=== PATIENT | female | born 1945 | race Native Hawaiian/Other Pacific Islander ===

== ENCOUNTER 2017-10-22 08:33 | Day surgery (SDC) | payer MEDICARE | END 2017-10-22 09:43 | disposition home or self-care (01) | LOC: C.PAT 08:33 → C.CATHLAB 08:33 → EDSTATUS 09:30 → C.CATHLAB 09:43 | PROVIDERS: ATTEND Internal Medicine | DX: R42 Dizziness and giddiness (principal) ==

== ENCOUNTER 2017-12-05 13:02 | Emergency (ER) | payer MEDICARE ==
[2017-12-05 13:25] VITALS: BMI 22.3
[2017-12-05 13:29] VITALS: BP 120/80; PULSE 85; RESP 18; TEMP 98.4; O2SAT 98
--- NOTE | 2017-12-05 13:54 | C.PDOC ---
History Of Present Illness 72 y/o female comes in for evaluation of left thumb possible foreign body/ stitch remaining from surgery in 08/2017. Of note, patient had the surgery performed in the [facility] and is not able to follow up with her surgeon at this time. One stitch is still in the finger, causing her discomfort. Otherwise she denies fever, chills, finger swelling, redness, discharge over the area. Time Seen by Provider: 12/05/17 13:24 Chief Complaint (Nursing): Finger,Hand,&Wrist History Per: Patient History/Exam Limitations: no limitations Onset/Duration Of Symptoms: Days Current Symptoms Are (Timing): Still Present Past Medical History Reviewed: Historical Data, Nursing Documentation, Vital Signs Vital Signs: Last Vital Signs Temp 98.4 F 12/05/17 13:26 Pulse 85 12/05/17 13:26 Resp 18 12/05/17 13:26 BP 120/80 12/05/17 13:26 Pulse Ox 98 12/05/17 14:14 - Medical History PMH: Diabetes, HTN, Hypercholesterolemia Surgical History: Other Surgeries: Left thumb surgery 08/2017 Family History: States: No Known Family Hx - Social History Hx Alcohol Use: No Hx Substance Use: No - Immunization History Hx Tetanus Toxoid Vaccination: No Hx Influenza Vaccination: No Hx Pneumococcal Vaccination: Yes Review Of Systems Constitutional: Negative for: Fever, Chills Skin: Positive for: Other (foreign body/stitch in healing surgical wound). Negative for: Rash Physical Exam - Physical Exam Appears: Well, Non-toxic, No Acute Distress Skin: Normal Color, Warm, Other (Palmar aspect of left thumb DIPJ: small nylon stitch noted, covered by granulation tissue, with no erythema, edema or fluctuance, no proximal streaking) Extremity: Normal ROM (Left hand), No Deformity, No Swelling Neurological/Psych: Oriented x3, Normal Speech, Normal Motor, Normal Sensation, Normal Reflexes ED Course And Treatment O2 Sat by Pulse Oximetry: 98 (RA) Pulse Ox Interpretation: Normal Progress Note: Patient advised that no emergent intervention is needed. She remains alert, afebrile, AAOx3 in the ED. Left hand: no evidence of cellulitis or abscess around remained suture. FAROM, no neurovascular deficits. Advised pt to follow up with hand surgeon in 1-2 days for removal in the office. Referral provided. Disposition Counseled Patient/Family Regarding: Diagnosis, Need For Followup - Disposition Referrals: Frieda Rankin MD [Staff Provider] - Disposition: HOME/ ROUTINE Disposition Time: 13:35 Condition: STABLE Additional Instructions: Follow up with hand surgery in 2-3 days for re-evaluation. return if any new changes. Instructions: Foreign Body in Skin Forms: [employer] (Hungarian) - Clinical Impression Clinical Impression: Foreign body in skin - PA / PLATE FINISHER / Resident Statement MD/DO has reviewed & agrees with the documentation as recorded. - Scribe Statement The provider has reviewed the documentation as recorded by the Scribe (Cece Kelley) All medical record entries made by the Scribe were at my direction and personally dictated by me. I have reviewed the chart and agree that the record accurately reflects my personal performance of the history, physical exam, medical decision making, and the department course for this patient. I have also personally directed, reviewed, and agree with the discharge instructions and disposition.
== END 2017-12-05 14:16 | disposition home or self-care (01) ==
LOC: C.ER 13:02
DX: S60.352A Superficial foreign body of left thumb, initial encounter (principal); X58.XXXA Exposure to other specified factors, initial encounter; E11.9 Type 2 diabetes mellitus without complications; E78.00 Pure hypercholesterolemia, unspecified; I10 Essential (primary) hypertension

== ENCOUNTER 2018-01-05 11:13 | Day surgery (SDC) | payer MEDICARE ==
[2018-01-05] MEDS ORDERED: Lidocaine/Epinephrine 1% 1:100000 10 ML IJ ONE (12:04)
--- NOTE | 2018-01-05 13:14 | PCM.SURG1 ---
Surgeon's Initial Post Op Note - Surgeon's Notes Surgeon: Dr. Young [place] Supervisor: Gerson Xie PGY1 Type of Anesthesia: Local Pre-Operative Diagnosis: multiple suture granulomas on left thumb Operative Findings: suture granulomas Post-Operative Diagnosis: same Operation Performed: excision of multiple suture granulomas of the left thumb Specimen/Specimens Removed: sutures Estimated Blood Loss: EBL {In ML}: 2 Blood Products Given: N/A Drains Used: No Drains Post-Op Condition: Good Date of Surgery/Procedure: 01/05/18 Time of Surgery/Procedure: 13:14
[2018-01-05 13:23] VITALS: BP 136/50; PULSE 65; RESP 18; TEMP 97.8; O2SAT 100
--- NOTE | 2018-01-09 00:04 | OP ---
PROCEDURE DATE: 01/05/2018 PREOPERATIVE DIAGNOSIS: Multiple suture granuloma, left thumb. POSTOPERATIVE DIAGNOSIS: Multiple suture granuloma, left thumb. PROCEDURE PERFORMED: Excision of all the granulomas. SURGEON: Vivek Young MD. FINDINGS: On the dorsum of the left thumb, there are two granulomas noted. This is located at the distal phalangeal joint. There is another lesion which is bigger about 3 or 4 mm on the ventral surface. DESCRIPTION OF PROCEDURE: Under local anesthesia, utilizing lidocaine 2% with epinephrine, a digital nerve block was made and first the lesion on the dorsum was excising an elliptical incision around the lesions. The wound was then closed utilizing multiple interrupted sutures of 4-0 nylon. The lesion on the ventral surface was then accomplished by excising in a similar fashion as the dorsum and closing it also with multiple interrupted sutures of 4-0 nylon. A slight pressure dressing was then applied, and the procedure was terminated. No complications. Vivek Young MD
== END 2018-01-05 13:25 | disposition home or self-care (01) ==
LOC: C.SDS 11:13
PROVIDERS: ATTEND Surgery
DX: T81.89XA Other complications of procedures, not elsewhere classified, initial encounter (principal); L92.3 Foreign body granuloma of the skin and subcutaneous tissue